=== PATIENT | female | born 1965 | race Caucasian/White ===

== ENCOUNTER 2017-06-15 14:14 | Emergency (ER) | payer OTHER ==
[2017-06-15 14:29] VITALS: BP 140/70; PULSE 70; TEMP 99.6; BMI 30.1
[2017-06-15] MEDS ORDERED: ACETAMINOPHEN 325 MG TABLET (FP) PO ONE (15:35)
--- NOTE | 2017-06-15 15:35 | PDOC ---
History of Present Illness <Alexander Samaniego - Last Filed: 06/15/17 16:44> - General History Source: Patient Exam Limitations: No Limitations - History of Present Illness Initial Comments: 06/15/17 18:24 The patient is a 52 year old female with no reported past medical history, s/p right leg vein ablation on Saturday w/ minimal discomfort, (on Motrin) presents to the emergency department with left knee/thigh pain since morning. The patient reports a constant pain to the medial aspect of the left knee/taylor, which radiates up to her thigh and hip, mild pain to the hip and soreness to the L. thigh, worse upon ambulation, and no improvement with motrin. The patient reports talking to the [facility] vascular surgeon who advised them to the ED due to concerns about DVT. Denies any recent falls or illness. Denies chest pain, cough, sob, lightheadedness, headaches, fevers, chills, or fever. Denies numbness, tingling, weakness or any changes on sensation. Allergies: None reported Social History: NKDA <Rashmi Galarza - Last Filed: 06/15/17 18:25> - General Chief Complaint: Pain, Acute Stated Complaint: LEFT THIGH PAIN Time Seen by Provider: 06/15/17 14:25 Past History - Past Medical History COPD: No - Suicide/Smoking/Psychosocial Hx Smoking History: Never smoked Hx Alcohol Use: No Drug/Substance Use Hx: No Substance Use Type: None <Alexander Samaniego - Last Filed: 06/15/17 16:44> <Rashmi Galarza - Last Filed: 06/15/17 18:25> - Past Medical History Allergies/Adverse Reactions: Allergies Allergy/AdvReac Type Severity Reaction Status Date / Time No Known Allergies Allergy Verified 06/15/17 14:16 Home Medications: Ambulatory Orders Ibuprofen [Advil -] 400 mg PO TID PRN 06/15/17 Review of Systems - Review of Systems Able to Perform ROS?: Yes Comments:: 06/15/17 18:25 Constitutional - Pt denies Fever, Chills, weakness, HEENT: denies vision changes, sore throat Respiratory: Denies cough, sob, hemoptysis Cardiac: denies chest pain, palpitations, light headedness, leg swelling Abd/GI: denies abd pain, nausea, vomiting, blood per rectum, melena, diarrhea : denies dysuria, frequency, discharge Musculskelatal: (+) L. knee pain which radiates to the thigh and hip. Soreness to the l. Thigh. denies back pain. skin - denies bruising, erythema, rash neurological: denies headache, numbness, focal weakness, tingling, ataxia, weakness hematologic: denies anemia, easy bruising, easy bleeding <Rashmi Galarza - Last Filed: 06/15/17 18:25> *Physical Exam - Vital Signs Last Vital Signs Temp Pulse Resp BP Pulse Ox 99.6 F 70 16 140/70 98 06/15/17 14:16 06/15/17 14:16 06/15/17 14:16 06/15/17 14:16 06/15/17 14:16 <Alexander Samaniego - Last Filed: 06/15/17 16:44> - Vital Signs Last Vital Signs Temp Pulse Resp BP Pulse Ox 99.6 F 70 16 140/70 98 06/15/17 14:16 06/15/17 14:16 06/15/17 14:16 06/15/17 14:16 06/15/17 14:16 - Physical Exam Comments: 06/15/17 18:25 GENERAL: The patient is awake, alert, and fully oriented, Nontoxic - in no acute distress. HEAD: Normocephalic, atraumatic. EYES: extraocular movements intact, sclera anicteric, conjunctiva clear. ENT: Normal voice, Moist mucous membranes. NECK: Normal range of motion, supple LUNGS: Breath sounds equal, clear to auscultation bilaterally. No wheezes, no rhonchi, no rales. HEART: Regular rate and rhythm, normal S1 and S2 without murmur, rub or gallop. ABDOMEN: Soft, nontender, normoactive bowel sounds. No guarding, no rebound. No CVA tenderness EXTREMITIES: Normal range of motion, no edema. steristrips and pen markings on her RLE without erythema/induration/tenderness, +tenderness on L medial knee/ tibfib without any rash, swelling, inudration, no calf tenderness/edema. NEUROLOGICAL: No facial assymetry, Normal speech, moving all 4 extremities spontaneously and symmetrically PSYCH: Normal mood, normal affect. SKIN: Warm, Dry, normal turgor, <Rashmi Galarza - Last Filed: 06/15/17 18:25> ED Treatment Course - RADIOLOGY Radiology Studies Ordered: Category Date Time Status DUPLEX VASCUL US-1 LEG [US] Stat Ultrasound 06/15/17 15:34 Ordered <Alexander Samaniego - Last Filed: 06/15/17 16:44> - Medications Given in the ED: ED Medications Discontinued Medications Generic Name Dose Route Start Last Admin Trade Name Raya PRN Reason Stop Dose Admin Acetaminophen 650 mg 06/15/17 15:35 06/15/17 15:40 Tylenol - PO 06/15/17 15:36 650 mg ONCE ONE Administration <Rashmi Galarza - Last Filed: 06/15/17 18:25> Medical Decision Making - Medical Decision Making 06/15/17 15:38 52y F recent hx of R vein ablation presents with L knee pain - patient has been ambulatory after her procedure, no associated chest pain, shortness of breath, leg swelling, recent injuries, falls. On exam the patient is well-appearing, no acute distress she has mild tenderness at the left medial knee/tib-fib area with no signs of rash, edema, induration, with a negative Homans sign. will obtain xray to r/o dvt tylenol for pain suspect may be due to overuse due to compensation from contralateral leg discomfort no clinical signs of pe/dvt A portion of this note was documented by scribe services under my direction. I have reviewed the details of the note, within reason, and agree with the documentation with the following case summary and management plan written by me 06/15/17 16:44 US negat zach for dVT pt notes that when the US tech externally roated her leg, she felt increased pain/spasm by her thigh suspect spasm/muscle pain will recommend supportive care pmd fu return precautions were discussed I discussed the physical exam findings, ancillary test results and final diagnoses with the patient. I answered all of the patient's questions. The patient was satisfied with the care received and felt comfortable with the discharge plan and treatment plan. The patient will call their primary care physician within 24 hours to arrange follow-up and will return to the Emergency Department with any new, persistent or worsening symptoms. <Alexander Samaniego - Last Filed: 06/15/17 16:44> *DC/Admit/Observation/Transfer - Discharge Dispostion Admit: No <Alexander Samaniego - Last Filed: 06/15/17 16:44> - Attestations Scribe Attestion: 06/15/17 18:25 Documentation prepared by Rashmi Galarza, acting as infertility medical assistant for Alexander Samaniego MD. <Rashmi Galarza - Last Filed: 06/15/17 18:25> Diagnosis at time of Disposition: Muscle spasm of right leg - Discharge Dispostion Disposition: HOME Condition at time of disposition: Improved - Referrals Referrals: Reji Sandoval [Other] - Patient Instructions Printed Discharge Instructions: DI for Leg Pain Additional Instructions: Regrese al departamento de emergencia de inmediato con CUALQUIER sntoma nuevo, persistente o que empeore. Descanse edd los prximos martinez, mantenga la pierna elevada, puede realizar actividades bsicas en el [facility] [place] no salga a tesha largos paseos. [place] Motrin segn sea necesario para mays dolor, hasta 400 mg 4 veces al da edd los prximos 2 martinez. DEBE llamar y hacer un seguimiento con mays mdico en 2-3 martinez para max evaluaci n ms profunda de michelle sntomas. Los resultados fueron discutidos con usted. Aseg rese de que mays mdico revise los resultados de mays evaluacin de emergencia. Return to the emergency department immediately with ANY new, persistent or worsening symptoms. Rest for the next several days, keep your leg elevated, you may do basic household activities but do not go for long walks. Take Motrin as needed for your pain, up to 400 mg 4 times daily for the next 2 days. You MUST call and follow up with your doctor in 2-3 days for further evaluation of your symptoms. Results were discussed with you. Please make sure your doctor reviews the results of your emergency evaluation. Print Language: TELUGU - Post Discharge Activity Forms/Work/School Notes: Back to Work
[2017-06-15] MEDS ORDERED: ACETAMINOPHEN 325 MG TABLET (FP) ONE (15:40)
== END 2017-06-15 17:14 | disposition home or self-care (01) ==
LOC: FER 14:14
DX: M62.838 Other muscle spasm (principal)
CPT/HCPCS: 93971-TC; 99282-25

== ENCOUNTER 2017-06-17 09:56 | Emergency (ER) | payer OTHER ==
[2017-06-17 10:09] VITALS: BP 123/80; PULSE 64; TEMP 98.1; BMI 30.9
[2017-06-17] MEDS ORDERED: NAPROXEN 500 MG TABLET (FP) PO ONE (10:14)
--- NOTE | 2017-06-17 10:30 | PDOC ---
History of Present Illness - General Chief Complaint: Pain Stated Complaint: LEFT KNEE PAIN Time Seen by Provider: 06/17/17 10:01 History Source: Patient Exam Limitations: No Limitations - History of Present Illness Initial Comments: 06/17/17 10:23 52 yo F c/ no pmh s/p RLE vein ablation POD 5D p/w left knee pain. Pt reports had outpatient procedure on RLE vein ablation 5 days ago. Reported no subsequent pain and was ambulatory the following day. Three days ago, woke up with left medial knee pain radiating to her left hip. Was seen in the ED. Noted in the notes was a negative ultrasound for DVT. Was instructed that it may be muscle spasm. The pain persisted and is worsen with leg extension and palpation of medial knee. Denies direct trauma to the area. No numbness, weakness. Has been taking motrin but with little relief. States ambulation worsens pain. Past History - Past Medical History Allergies/Adverse Reactions: Allergies Allergy/AdvReac Type Severity Reaction Status Date / Time No Known Allergies Allergy Verified 06/15/17 14:16 Home Medications: Ambulatory Orders Ibuprofen [Advil -] 400 mg PO BID 06/15/17 Naproxen 500 mg PO BID #20 tablet 06/17/17 COPD: No - Suicide/Smoking/Psychosocial Hx Smoking History: Never smoked Information on smoking cessation initiated: No Hx Alcohol Use: No Drug/Substance Use Hx: No Substance Use Type: None Review of Systems - Review of Systems Able to Perform ROS?: Yes Comments:: 06/17/17 10:30 GENERAL/CONSTITUTIONAL: No fever, weakness. HEAD, EYES, EARS, NOSE AND THROAT: No change in vision. No ear pain or discharge. No sore throat. CARDIOVASCULAR: No chest pain or shortness of breath. RESPIRATORY: No cough, wheezing, or hemoptysis. GASTROINTESTINAL: No abdominal pain, nausea, vomiting, diarrhea, or decreased PO intolerance. GENITOURINARY: No dysuria, frequency, or change in urination. MUSCULOSKELETAL: +left knee pain SKIN: No rash NEUROLOGIC: No headache, vertigo, loss of consciousness, or change in strength/ sensation. ENDOCRINE: No increased thirst. No abnormal weight change. HEMATOLOGIC/LYMPHATIC: No anemia, easy bleeding, or history of blood clots. ALLERGIC/IMMUNOLOGIC: No hives or skin allergy. *Physical Exam - Vital Signs Last Vital Signs Temp Pulse Resp BP Pulse Ox 98.1 F 64 16 123/80 100 06/17/17 09:57 06/17/17 09:57 06/17/17 09:57 06/17/17 09:57 06/17/17 09:57 - Physical Exam Comments: 06/17/17 10:30 GENERAL: Awake, alert, and fully oriented, in no acute distress. HEAD: No signs of trauma EYES: PERRLA, EOMI, sclera anicteric, conjunctiva clear ENT: Auricles normal inspection, hearing grossly normal, nares patent, oropharynx clear without exudates. NECK: Normal ROM, supple EXTREMITIES: Normal range of motion, no edema. No clubbing or cyanosis. No cords, erythema, or tenderness LLE: 2+ DP pulse. sensation intact throughout. negative anterior/posterior drawer test. Negative varus/valgus. TTP medial knee. FROM. No tenderness to hip. NEUROLOGICAL: Cranial nerves II through XII grossly intact. Normal speech, normal gait SKIN: Warm, Dry, normal turgor, no rashes or lesions noted. ED Treatment Course - RADIOLOGY Radiology Studies Ordered: Category Date Time Status KNEE 3 POS-LEFT [RAD] Stat Radiology 06/17/17 10:14 Ordered - Medications Given in the ED: ED Medications Discontinued Medications Generic Name Dose Route Start Last Admin Trade Name Freq PRN Reason Stop Dose Admin Naproxen 500 mg 06/17/17 10:14 06/17/17 10:21 Naprosyn - PO 06/17/17 10:15 500 mg ONCE ONE Administration Medical Decision Making - Medical Decision Making 06/17/17 10:31 Vital Signs Temp Pulse Resp BP Pulse Ox 98.1 F 64 16 123/80 100 06/17/17 09:57 06/17/17 09:57 06/17/17 09:57 06/17/17 09:57 06/17/17 09:57 Had a recent negative duplex documented in system. Will obtain a left knee radiograph to evaluate knee. However, could the patient have strain her left knee? Or injured unknowingly to her meniscus or ligaments? If the xrays are negative, will allow activity as tolerated with rest, ice, compression and elevation. Will need to refer patient to orthopedics (patient will go downstairs) for further management and disposition. Will discharge with cane or crutches. 06/17/17 10:54 Xray negative. Pt may have been compensating by using her left leg more. I had wrapped her left leg and given her a cane. Pt will go downstairs to schedule an appointment. I discussed the physical exam findings, ancillary test results and final diagnoses with the patient. I answered all of the patient's questions. The patient was satisfied with the care received and felt comfortable with the discharge plan and treatment plan. The patient will call their primary care physician within 24 hours to arrange follow-up and will return to the Emergency Department with any new, persistant or worsening symptoms. *DC/Admit/Observation/Transfer Diagnosis at time of Disposition: Knee pain, left Qualifiers: Chronicity: acute Qualified Code(s): M25.562 - Pain in left knee - Discharge Dispostion Disposition: HOME Condition at time of disposition: Stable Admit: No - Prescriptions Prescriptions: Naproxen 500 mg PO BID #20 tablet - Referrals Referrals: Federico Umana MD [Staff Physician] - - Patient Instructions Printed Discharge Instructions: DI for Knee Pain Additional Instructions: Your radiograph of the knee was negative. Wear the ALTA wrap for comfort. Walk with using the cane. Do not go back to work until you are cleared by your doctor or an orthopedist. Elevate the leg as much as you can by putting two pillows underneathe ( particularly when sleeping). Ice your knee 10 minutes at a time several times throughout the day. Please make an appointment with an orthopedist. - Post Discharge Activity Forms/Work/School Notes: Back to Work
== END 2017-06-17 11:03 | disposition home or self-care (01) ==
LOC: FER 09:56
DX: M25.562 Pain in left knee (principal)
CPT/HCPCS: 73562-TC-LT-FY; 99282-25